=== PATIENT | male | born 1960 | race Caucasian/White ===

== ENCOUNTER → 2021-09-21 10:40 | Outpatient (BNVA) | payer MEDICARE, MEDICAID, SELFPAY | PROVIDERS: PCP Internal Medicine; Visit Provider Hospitalist | DX: J45.909 Unspecified asthma, uncomplicated (principal); R06.00 Dyspnea, unspecified; I51.89 Other ill-defined heart diseases; C61 Malignant neoplasm of prostate; G47.33 Obstructive sleep apnea (adult) (pediatric); Z99.89 Dependence on other enabling machines and devices | CPT/HCPCS: 99202 ==

== ENCOUNTER 2021-10-18 10:49 | Outpatient (REF) | payer MEDICARE, MEDICAID, SELFPAY ==
--- NOTE | 2021-10-18 12:53 | PFT_ITS ---
INDICATION: Dyspnea. SPIROMETRY: FEV1 to FVC of 74% with an FEV1 of 2.69 L, which is 82% predicted and an FVC of 3.65, which is 82% predicted. No significant response to bronchodilators noted. Maximum voluntary ventilation 97% predicted. LUNG VOLUMES: Total lung capacity 85% predicted with an expiratory reserve volume of 33% predicted. DIFFUSION CAPACITY: DLCO 50% predicted. COMPARISONS: None. INTERPRETATION: No obstructive nor restrictive ventilatory defects have been identified. No significant response to bronchodilators noted. Normal maximum voluntary ventilation. Lung volumes are normal except for decrease in the expiratory reserve volume secondary to an elevated BMI. However, the patient has an isolated moderate diffusion impairment. Need to consider occult interstitial lung conditions and/or pulmonary vascular conditions. The diffusion capacity should also be corrected for hemoglobin. Clinical correlation warranted. MD EVELINA Patel/MODL / [id number]
== END 2021-10-18 10:50 | disposition home or self-care (01) ==
LOC: HO.RESP 10:49
PROVIDERS: Visit Provider Hospitalist
DX: J45.909 Unspecified asthma, uncomplicated (principal)
CPT/HCPCS: 94060; 94727; 94729

== ENCOUNTER → 2021-11-09 13:36 | Outpatient (BNVA) | payer MEDICARE, MEDICAID, SELFPAY | PROVIDERS: PCP Internal Medicine; Visit Provider Hospitalist | DX: J45.909 Unspecified asthma, uncomplicated (principal); R06.00 Dyspnea, unspecified; I51.89 Other ill-defined heart diseases; C61 Malignant neoplasm of prostate; G47.33 Obstructive sleep apnea (adult) (pediatric); Z99.89 Dependence on other enabling machines and devices | CPT/HCPCS: 99212 ==

== ENCOUNTER → 2021-11-27 09:43 | Outpatient (REF) | payer MEDICARE, MEDICAID, SELFPAY | LOC: HO.SL 09:43 | PROVIDERS: Visit Provider Hospitalist | DX: Z13.89 Encounter for screening for other disorder (principal) ==

== ENCOUNTER → 2021-12-04 09:40 | Outpatient (REF) | payer MEDICARE, MEDICAID, SELFPAY | LOC: HO.SL 09:40 | PROVIDERS: Visit Provider Hospitalist | DX: G47.33 Obstructive sleep apnea (adult) (pediatric) (principal) | CPT/HCPCS: 95806 ==

== ENCOUNTER → 2022-01-07 14:02 | Outpatient (BNVA) | payer MEDICARE, MEDICAID, SELFPAY | PROVIDERS: PCP Internal Medicine; Visit Provider Hospitalist | DX: J45.909 Unspecified asthma, uncomplicated (principal); I51.89 Other ill-defined heart diseases; C61 Malignant neoplasm of prostate; G47.33 Obstructive sleep apnea (adult) (pediatric); Z99.89 Dependence on other enabling machines and devices | CPT/HCPCS: 99212 ==

== ENCOUNTER → 2022-01-16 08:28 | Outpatient (REF) | payer MEDICARE, MEDICAID, SELFPAY ==
--- NOTE | ~2022-01-16 | NM_ITS ---
PULMONARY PERFUSION ONLY STUDY: CLINICAL INDICATION: Dyspnea, unspecified. PROCEDURE: Following the intravenous administration of 5.0 millicuries technetium 99m MAA, images of the chest were obtained in multiple projections using a gamma scintiphotographic camera. The radiotracer was injected through right antecubital superficial vein without complications. COMPARISON: Chest radiograph done today. PERFUSION IMAGES: No segmental perfusion defects or other perfusion abnormalities are noted. NM/NM pul perfusion IMPRESSION: Based on perfusion only modified PIOPED 2 criteria, pulmonary thromboembolism is absent.
--- NOTE | ~2022-01-16 | XR_ITS ---
EXAMINATION: XR CHEST CLINICAL INFORMATION: Dyspnea. COMPARISON: None TECHNIQUE: 2 views of the chest were obtained. FINDINGS: Normal appearance of the cardiomediastinal silhouette. No focal airspace opacity, pleural effusion or pneumothorax. Nonspecific increased sclerosis of a mid thoracic vertebral body. The imaged upper abdomen is within normal limits. XR/XR chest 2V IMPRESSION: Nonspecific sclerosis of a mid thoracic vertebral body. Recommend correlation with a bone scan or MRI of the thoracic spine for further characterization. Metastatic disease is a possible differential consideration. The report will be called to the ordering clinician by a [place] [facility] Phys[facility] Seismograph Chief.
== END ==
LOC: HO.NUCMED 08:28
PROVIDERS: Visit Provider Hospitalist
DX: R06.00 Dyspnea, unspecified (principal)
CPT/HCPCS: 71046; 78580; A9540

== ENCOUNTER → 2022-03-22 08:54 | Outpatient (BNVA) | payer MEDICARE, MEDICAID, SELFPAY | PROVIDERS: PCP Internal Medicine; Visit Provider Hospitalist | DX: R06.00 Dyspnea, unspecified (principal); J45.909 Unspecified asthma, uncomplicated; I51.89 Other ill-defined heart diseases; C61 Malignant neoplasm of prostate; G47.33 Obstructive sleep apnea (adult) (pediatric); Z99.89 Dependence on other enabling machines and devices | CPT/HCPCS: 99212 ==

== ENCOUNTER → 2022-09-13 08:57 | Outpatient (BNVA) | payer MEDICARE, MEDICAID, SELFPAY | PROVIDERS: PCP Internal Medicine; Visit Provider Hospitalist | DX: J45.909 Unspecified asthma, uncomplicated (principal); R06.00 Dyspnea, unspecified; I25.10 Atherosclerotic heart disease of native coronary artery without angina pectoris; I11.0 Hypertensive heart disease with heart failure; I50.30 Unspecified diastolic (congestive) heart failure; G47.33 Obstructive sleep apnea (adult) (pediatric); Z95.5 Presence of coronary angioplasty implant and graft; Z94.0 Kidney transplant status; Z99.89 Dependence on other enabling machines and devices | CPT/HCPCS: 99212 ==

== ENCOUNTER 2023-04-15 14:39 | Outpatient (AMB) | payer MEDICARE, MEDICAID, SELFPAY ==
[2023-04-15 14:43] VITALS: PULSE 59; O2SAT 98; BMI 28.0
--- NOTE | 2023-04-15 14:43 | A.OFFVIS_ITS ---
Intake Vital Signs 04/15/23 14:43 Height 5 ft 8 in Weight 184 lb BMI 28.0 Pulse 59 Pulse Source Pulse Oximeter Pulse Oximetry (%) 98 Oxygen Delivery Method Room Air Intake Visit Reasons: Dyspnea on Exertion It Systems Manager Required: No Allergies eptifibatide [From Integrilin] Allergy (Severe, Verified 04/15/23 14:44) Anaphylaxis hydromorphone Allergy (Severe, Verified 04/15/23 14:44) Anaphylaxis sirolimus [From Rapamune] Allergy (Severe, Verified 04/15/23 14:44) Hypertension HPI HPI Comments History of Present Illness Details The patient is a 62-year-old gentleman with a known history of renal transplantation in addition to CAD s/p PCI, MARISA on CPAP and asthma who apparently has been in his usual state health until the last few months. He has been admitted twice this year for urological infections. His last admission was in early September and was recently discharged after being diagnosed with pyelonephritis. During that evaluation he did have a CT scan of the abdomen and pelvis which I personally reviewed demonstrating normal lung parenchyma the bases. In addition to that he did have an echocardiogram demonstrating intermediate diastolic dysfunction. The patient does have a history of asthma and has been on Symbicort for many years. He also has a rescue inhaler. He has been complaining of worsening dyspnea on exertion. He does not get any relief from his inhalers any longer. He is looking to switch to different respiratory therapy. The patient is aware that likely that his dyspnea symptoms may be multifactorial including diastolic dysfunction and also deconditioning. During the visit we did undergo a 6 minute walk test where he was able to maintain his pulse ox at 98% and the heart rate was stable. Patient had a dyspnea score of 2/10. He was able to ambulate 200 yd without any significant symptoms except for developing hip discomfort. Once he sat down he became more symptomatic. Also to note the patient does have a history of metastatic prostate cancer with bony Mets. He is followed closely by Oncology and has been on hormonal therapy for that. No evidence of any metastatic prostate cancer into the lungs please from what I could evaluate. 11/09/2021 the patient is here for pulmonary follow-up visit. He is still complaining of dyspnea on exertion. Moderate severity. Also associated with cough productive in nature. Again, he does have history of obstructive airway disease. He has a component of chronic bronchitis. He has had multiple exacerbations. No significant allergens noted on blood work. Patient will be a good candidate for Daliresp. In addition to that he continues to have daytime drowsiness. His Ralph score is elevated 10/24. He does have a history of snoring. The patient does have a significant cardiac history. The patient needs to have a sleep study at this time. 01/07/2022 the patient is here for a pulmonary follow-up visit. He continues to have dyspnea on exertion moderate severity. he does seem to respond to the short-acting beta agonist As needed. He did not respond well to the Trelegy. He did not feel like it was helping at all. He responded better to the Symbicort. He still has it at home. He was also started on Daliresp. 250 mcg dose which is that low dose. He tolerated it well and he did feel that it did help his symptoms. Therefore will optimize that therapy by increasing it to 500 mcg. We can look that his sleep study demonstrating no significant sleep apnea at this time. We did talk about positional therapy he does better when he sleeps on his right side to minimize apneas. In the meantime the patient also had pulmonary function studies previously. We again reviewed them demonstrating no obstructive nor restrictive ventilatory defects. Although he does have a moderate isolated diffusion impairment of unclear etiology. In order to complete the workup way to consider pulmonary vascular conditions such as thromboembolic disease. Will have him undergo a V/Q scan to rule out thromboembolic disease at this time. He does not have evidence of anemia which can also decrease his DLCO. The patient is to continue exercising regularly. He understands this abdominal girth and abdominal pressure will also affect his respiratory capacity. 03/22/2022 the patient is here for pulmo luiy follow-up visit. The patient has been feeling better. Seems to be still responding well to the Symbicort. Does use it with good response. Has not had to use her rescue inhaler. Still complaining of shortness of breath with activity. portable workup included a V/Q scan that ruled out chronic thromboembolic disease. This is reassuring. He will follow up with Cardiology and I believe he is going to undergo a repeat stress test. In addition to that he is noted to have anemia with hemoglobin of 9. He understands all these factors are going to result in ongoing dyspnea symptoms. Will follow up with his with his education research analyst regarding the anemia. He had been on people prior to his renal transplant. On his chest x-ray was noted a sclerotic lesion. We know that he has prostate cancer with bone involvement in this is likely to be related to that. He will follow up with his oncologist regarding this findings as well. The patient also has been using CPAP. CPAP therapy has been affecting beneficial. He does use it for more than 4 hours a night. 09/13/2022 the patient is here for a pulmo nary follow-up visit. In May 2022 the patient had a repeat CT scan of the chest at [facility]. It demonstrated new pulmonary nodules measuring 4 mm in size approximately 3 them. In addition to that he has some tree-in-bud areas suggesting bronchiolitis. Subsequently after that she developed COVID-19. Develop worsening respiratory symptoms. Currently still feeling better although feeling sinus discomfort and also chest congestion at times. He is coughing. The cough was initially productive of green sputum in the house clearing up. He is scheduled to have a CT scan now in the coming weeks. I did recommend he start doxycycline to treat his sinuses also his lungs in case he has any inflammatory infectious component. In addition to that he is tolerating his respiratory therapy with good effect. He is having hard time sleeping. We talked about different options. He wants to try trazodone which she apparently use in the past with good effect. 04/15/2023 the patient is here for a pulm onary follow-up visit. Overall the patient has been doing better. He is tolerating the Symbicort 1 puff twice a day. In addition to that he has been using the Daliresp. His respiratory symptoms are improved overall. However, he does state that around 05:00 o'clock in the morning he wakes up with chest tightness and shortness of breath. Any has a hard time falling asleep because the symptoms. Therefore, will be reasonable to add a long-acting muscarinic antagonist at bedtime to see if this provides relief of the bronchospasms while he is sleeping. He is having issues with pain. He is going to have an MRI soon. Also struggling with sleep. He did not take the trazodone because he is concerned about potential side effects. However, he has been responding well to melatonin and he does use herbal tea. He will continue with therapy for now. The patient returns 6 months. I which time if his own better will look into it deescalating some of the therapies. [facility] Medical History (Updated 04/15/23 @ 15:46 by Anibal Engel MD) MARISA on CPAP Diastolic dysfunction Dyspnea Osteoporosis Asthma Hyperparathyroidism Prostate cancer (~2019) DM2 (diabetes mellitus, type 2) Hypertension Alport syndrome CAD (coronary artery disease) Surgical History (Updated 09/21/21 @ 10:59 by Paulette Wallis PA-C) History of bilateral hip replacements History of heart artery stent History of kidney transplant Social History (Updated 09/21/21 @ 11:05 by LILY Abbasi) Patient Tobacco Use Status: Never used Tobacco Review of Systems Const Reports difficulty sleeping, Denies fever(s) and Reports snoring Eyes Denies change in vision ENT Denies change in voice Card Denies chest pain and Denies dyspnea on exertion Resp Denies chest congestion, Reports cough, Denies dyspnea on exertion, Reports snoring and Denies wheezing GI Reports no additional complaints Reports as per HPI Musc Reports myalgias, Reports arthralgias and Reports limited range of motion Skin/Breast Denies rash Neuro Reports no additional complaints Psych Reports no additional complaints Aller/Immun Denies wheezing Physical Exam Vital Signs: Last Vital Signs Pulse 59 04/15/23 14:43 Pulse Ox 98 04/15/23 14:43 Oxygen Delivery Method Room Air 04/15/23 14:43 BMI result Body Mass Index 28.0 Const General: alert Neck Neck: Yes normal visual inspection, Yes full ROM and Yes no lymphadenopathy Chest Chest palpation & inspection: normal inspection of the chest Resp Auscultation: diminished lung sounds Cardio Rate: regular rate Rhythm: regular rhythm Heart sounds: S1 normal heart sound present and S2 normal heart sound present GI Palpation (GI): Soft to palpation and nontender Auscultation: normal bowel sounds Skin General skin exam: rashes and/or lesions noted Assessment & Plan Assessment & Plan (1) Asthma: Code(s): J45.909 - Unspecified asthma, uncomplicated Qualifiers: Asthma severity: moderate Asthma persistence: persistent Asthma complication type: uncomplicated Qualified Code(s): J45.40 - Moderate persistent asthma, uncomplicated (2) Dyspnea: Code(s): R06.00 - Dyspnea, unspecified Qualifiers: Dyspnea type: dyspnea on exertion Qualified Code(s): R06.09 - Other forms of dyspnea (3) Diastolic dysfunction: Code(s): I51.89 - Other ill-defined heart diseases (4) Prostate cancer: Onset Date: ~2019 Comment: (Hormone sensitive metastatic prostate cancer [numerous osseus foci] - dx 2019) Code(s): C61 - Malignant neoplasm of prostate (5) MARISA on CPAP: Code(s): G47.33 - Obstructive sleep apnea (adult) (pediatric); Z99.89 - Dependence on other enabling machines and devices Plan Symbicort 1puff BID start Spiriva QHS continue short-acting beta agonist as needed continue Daliresp 500mcg continue Melatonin Follow-up with oncology regarding sclerotic bone lesions his spine follow-up in 6 months Medications: New tiotropium bromide 2.5 mcg/actuation (Spiriva Respimat) 2 puffs inhalation BEDTIME 30 days 1 ea 11RF Coding Level of Care Code Est Pt Level 4 (59692) Diagnoses Moderate persistent asthma without complication J45.40 Asthma severity: moderate Asthma persistence: persistent Asthma complication type: uncomplicated Dyspnea on exertion R06.09 Dyspnea type: dyspnea on exertion Diastolic dysfunction I51.89 Prostate cancer C61 MARISA on CPAP G47.33; Z99.89 Time Spent (min) 16
== END 2023-04-15 14:56 | disposition home or self-care (01) ==
PROVIDERS: PCP Internal Medicine; Visit Provider Hospitalist
DX: J45.40 Moderate persistent asthma, uncomplicated (principal); R06.09 Other forms of dyspnea; I51.89 Other ill-defined heart diseases; C61 Malignant neoplasm of prostate; G47.33 Obstructive sleep apnea (adult) (pediatric); Z99.89 Dependence on other enabling machines and devices
CPT/HCPCS: 99214

== ENCOUNTER → 2023-04-15 14:39 | Outpatient (BNVA) | payer MEDICARE, MEDICAID, SELFPAY | PROVIDERS: PCP Internal Medicine; Visit Provider Hospitalist | DX: J45.40 Moderate persistent asthma, uncomplicated (principal); R06.09 Other forms of dyspnea; G47.33 Obstructive sleep apnea (adult) (pediatric); I51.89 Other ill-defined heart diseases; C61 Malignant neoplasm of prostate; Z94.0 Kidney transplant status; Z99.89 Dependence on other enabling machines and devices | CPT/HCPCS: 99212 ==